=== PATIENT | male | born 1985 | race Hispanic/Latino ===

== ENCOUNTER → 2023-05-29 | Outpatient (CLI) | payer BC ==
[2023-05-29 07:26] LABS: BASOPHIL % 0.2 % (0.0-0.2); EOSINOPHIL # 0.2 10^3/uL (0.0-0.2); EOSINOPHIL % 3.7 % (0.0-5.0); HEMATOCRIT(ML) 37.6 % (37.0-53.0); HEMOGLOBIN 12.3 g/dL (13.9-16.3); IG % 0.2 % (0.00-0.50); LYMPHOCYTES # 0.56 10^3/uL1 (1.0-4.8); LYMPHOCYTES % 10.9 % (24.0-44.0); MEAN CORP HGB 29.6 pg (26-34); MEAN CORP HGB CONCENTRATION 32.7 g/dL (33-36.5); MEAN CORP VOLUME 90.6 fL (78-100); MONOCYTES # 0.4 10^3/uL (0.3-0.8); MONOCYTES % 7.2 % (5.0-12.0); NEUTROPHILS % 77.8 % (41.0-85.0); RED BLOOD CELL 4.15 10^6/uL (4.50-5.90); RED CELL DISTRIBUTION WIDTH 13.8 % (11.5-14.5); WHITE BLOOD CELL 5.2 10^3/uL (4.5-11.0)
[2023-05-29 07:28] LABS: BILIRUBIN,URINE NEGATIVE (NEGATIVE); LEUKOCYTE ESTERASE ,URINE NEGATIVE (NEGATIVE); NITRATE,URINE NEGATIVE (NEGATIVE); PH,URINE 5.5 (4.5-8.0); UROBILINOGEN,URINE 0.2 E.U./dL (0.2)
[2023-05-29 07:29] LABS: APPEARANCE,URINE CLEAR; UA COLOR YELLOW
[2023-05-29 07:39] LABS: ALBUMIN(ML) 0.9 g/dL (3.4-5.0); ANION GAP 10.6; BUN/CREATININE RATIO 22.12 (10.0-20.0); CALCIUM 8.4 mg/dL (8.4-10.5); CARBON DIOXIDE 19.7 mmol/L (20.0-32); CREATININE SERUM 2.35 mg/dL (0.59-1.40); POTASSIUM 4.3 mmol/L (3.6-5.2)
== END | disposition home or self-care (01) ==
LOC: NPLAB 06:59
DX: N39.0 Urinary tract infection, site not specified (principal); D89.9 Disorder involving the immune mechanism, unspecified; Z94.0 Kidney transplant status
CPT/HCPCS: 36415; 80069; 81001; 82043; 82570; 83735; 85025; 87086

== ENCOUNTER → 2023-06-05 | Outpatient (CLI) | payer BC ==
[2023-06-05 07:21] LABS: BASOPHIL % 0.2 % (0.0-0.2); EOSINOPHIL # 0.1 10^3/uL (0.0-0.2); EOSINOPHIL % 2.4 % (0.0-5.0); HEMATOCRIT(ML) 36.5 % (37.0-53.0); LYMPHOCYTES # 0.54 10^3/uL1 (1.0-4.8); LYMPHOCYTES % 10.9 % (24.0-44.0); MEAN CORP HGB 29.9 pg (26-34); MEAN CORP HGB CONCENTRATION 32.9 g/dL (33-36.5); MEAN CORP VOLUME 90.8 fL (78-100); MONOCYTES # 0.3 10^3/uL (0.3-0.8); MONOCYTES % 6.7 % (5.0-12.0); NEUTROPHIL # 3.9 10^3/uL (1.8-7.7); NEUTROPHILS % 79.6 % (41.0-85.0); PLATELET COUNT 350 10^3/uL (150-400); RED BLOOD CELL 4.02 10^6/uL (4.50-5.90); RED CELL DISTRIBUTION WIDTH 13.5 % (11.5-14.5); WHITE BLOOD CELL 4.9 10^3/uL (4.5-11.0)
[2023-06-05 07:24] LABS: BILIRUBIN,URINE NEGATIVE (NEGATIVE); LEUKOCYTE ESTERASE ,URINE NEGATIVE (NEGATIVE); NITRATE,URINE NEGATIVE (NEGATIVE); PH,URINE 5.5 (4.5-8.0); UROBILINOGEN,URINE 0.2 E.U./dL (0.2)
[2023-06-05 07:25] LABS: +ADD MANUAL DIFF(NO CHRG) NO
[2023-06-05 07:26] LABS: APPEARANCE,URINE CLOUDY; UA COLOR YELLOW
[2023-06-05 07:34] LABS: ALBUMIN(ML) 0.8 g/dL (3.4-5.0); BUN/CREATININE RATIO 19.36 (10.0-20.0); CALCIUM 8.3 mg/dL (8.4-10.5); CARBON DIOXIDE 16.5 mmol/L (20.0-32); CREATININE SERUM 2.53 mg/dL (0.59-1.40); EST GFR, NON-AA 28.5 (>/=60); POTASSIUM 4.5 mmol/L (3.6-5.2)
[2023-06-05 07:53] LABS: URINE PROTEIN(ML) 846.8 mg/dL (0-20)
== END | disposition home or self-care (01) ==
LOC: LAB 07:02
PROVIDERS: ATTEND Nurse Practitioner
DX: N39.0 Urinary tract infection, site not specified (principal); Z94.0 Kidney transplant status
CPT/HCPCS: 36415; 80069; 80158; 81001; 82570; 83735; 84156; 85025; 87086

== ENCOUNTER → 2023-06-19 | Outpatient (CLI) | payer BC ==
[2023-06-19 07:25] LABS: BASOPHIL % 0.2 % (0.0-0.2); EOSINOPHIL # 0.2 10^3/uL (0.0-0.2); EOSINOPHIL % 3.7 % (0.0-5.0); HEMATOCRIT(ML) 33.5 % (37.0-53.0); HEMOGLOBIN 11.3 g/dL (13.9-16.3); LYMPHOCYTES # 0.67 10^3/uL1 (1.0-4.8); LYMPHOCYTES % 14.8 % (24.0-44.0); MEAN CORP HGB 30.1 pg (26-34); MEAN CORP HGB CONCENTRATION 33.7 g/dL (33-36.5); MEAN CORP VOLUME 89.3 fL (78-100); MONOCYTES # 0.4 10^3/uL (0.3-0.8); MONOCYTES % 9.3 % (5.0-12.0); NEUTROPHIL # 3.3 10^3/uL (1.8-7.7); NEUTROPHILS % 71.6 % (41.0-85.0); PLATELET COUNT 338 10^3/uL (150-400); RED BLOOD CELL 3.75 10^6/uL (4.50-5.90); RED CELL DISTRIBUTION WIDTH 13.3 % (11.5-14.5); WHITE BLOOD CELL 4.5 10^3/uL (4.5-11.0)
[2023-06-19 07:28] LABS: +ADD MANUAL DIFF(NO CHRG) NO
[2023-06-19 07:49] LABS: ALBUMIN(ML) 1.8 g/dL (3.4-5.0); ANION GAP 13.9; BUN/CREATININE RATIO 13.49 (10.0-20.0); CREATININE SERUM 2.89 mg/dL (0.59-1.40); EST GFR, NON-AA 24.3 (>/=60); POTASSIUM 3.9 mmol/L (3.6-5.2)
[2023-06-19 08:03] LABS: URINE PROTEIN(ML) 840.7 mg/dL (0-20)
[2023-06-19 08:13] LABS: APPEARANCE,URINE CLEAR; UA COLOR YELLOW
[2023-06-19 08:14] LABS: BILIRUBIN,URINE NEGATIVE (NEGATIVE); UROBILINOGEN,URINE 0.2 E.U./dL (0.2)
[2023-06-19 08:15] LABS: LEUKOCYTE ESTERASE ,URINE NEGATIVE (NEGATIVE); NITRATE,URINE NEGATIVE (NEGATIVE)
[2023-06-19 08:16] LABS: HYALINE CASTS, URINE FEW (NONE SEEN)
== END | disposition home or self-care (01) ==
LOC: NPLAB 07:05
DX: N39.0 Urinary tract infection, site not specified (principal); Z94.0 Kidney transplant status
CPT/HCPCS: 36415; 80069; 80158; 81001; 82570; 83735; 84156; 85025; 87086

== ENCOUNTER → 2023-06-26 | Outpatient (CLI) | payer BC ==
[2023-06-26 07:09] LABS: BASOPHIL % 0.1 % (0.0-0.2); EOSINOPHIL # 0.2 10^3/uL (0.0-0.2); EOSINOPHIL % 2.4 % (0.0-5.0); HEMATOCRIT(ML) 32.6 % (37.0-53.0); HEMOGLOBIN 10.7 g/dL (13.9-16.3); LYMPHOCYTES # 0.62 10^3/uL1 (1.0-4.8); LYMPHOCYTES % 9.2 % (24.0-44.0); MEAN CORP HGB 29.7 pg (26-34); MEAN CORP HGB CONCENTRATION 32.8 g/dL (33-36.5); MEAN CORP VOLUME 90.6 fL (78-100); MONOCYTES # 0.5 10^3/uL (0.3-0.8); MONOCYTES % 6.8 % (5.0-12.0); NEUTROPHIL # 5.5 10^3/uL (1.8-7.7); NEUTROPHILS % 81.2 % (41.0-85.0); PLATELET COUNT 372 10^3/uL (150-400); RED CELL DISTRIBUTION WIDTH 13.5 % (11.5-14.5); WHITE BLOOD CELL 6.7 10^3/uL (4.5-11.0)
[2023-06-26 07:19] LABS: +ADD MANUAL DIFF(NO CHRG) NO
[2023-06-26 07:24] LABS: ALBUMIN(ML) 1.5 g/dL (3.4-5.0); ANION GAP 16.6; APPEARANCE,URINE CLEAR; BILIRUBIN,URINE NEGATIVE (NEGATIVE); BUN/CREATININE RATIO 15.67 (10.0-20.0); CALCIUM 8.4 mg/dL (8.4-10.5); CARBON DIOXIDE 20.5 mmol/L (20.0-32); CREATININE SERUM 3.19 mg/dL (0.59-1.40); EST GFR, NON-AA 21.7 (>/=60); POTASSIUM 4.1 mmol/L (3.6-5.2); UA COLOR YELLOW
[2023-06-26 07:25] LABS: LEUKOCYTE ESTERASE ,URINE NEGATIVE (NEGATIVE); NITRATE,URINE NEGATIVE (NEGATIVE); UROBILINOGEN,URINE 0.2 E.U./dL (0.2)
[2023-06-26 07:45] LABS: URINE PROTEIN(ML) 482.2 mg/dL (0-20)
== END | disposition home or self-care (01) ==
LOC: NPLAB 06:53
DX: N39.0 Urinary tract infection, site not specified (principal); D89.9 Disorder involving the immune mechanism, unspecified; Z94.0 Kidney transplant status
CPT/HCPCS: 36415; 80069; 80158; 81001; 82570; 83735; 84156; 85025; 87086